=== PATIENT | male | born 1990 | race Caucasian/White ===

== ENCOUNTER → 2017-08-21 | Emergency (ER) | payer MEDICAID | LOC: ER 08:25 | DX: Z02.9 Encounter for administrative examinations, unspecified (principal) ==

== ENCOUNTER 2017-10-13 06:27 | Emergency (ER) | payer MEDICAID ==
[2017-10-13] MEDS ORDERED: ACET-1966 PO (06:40)
[2017-10-13 07:17] LABS: PLATELET COUNT, AUTOMATED 247 K/uL (150-450)
--- NOTE | 2017-10-13 07:22 | RADIOLOGY IMAGING REPORT ---
FACILITY: [facility] PATIENT NAME: Hiro Garcia : 1990 MR: [id number] V: [id number] EXAM DATE: [id number] ORDERING PHYSICIAN: SIGIFREDO MORALES TECHNOLOGIST: Location: [facility] - [place], [place] Patient: Hiro Garcia : 1990 Visit/Account:[id number] Date of Sevice: 10/13/2017 INDICATION: Nausea and vomiting. EXAM DATE: 10/13/2017 6:45 AM COMPARISON: None. FINDINGS: PA view the chest with upright and supine views of the abdomen (3 images). The lungs are well-expanded and clear. No pleural effusion or pneumothorax. Heart size is normal. Bowel gas pattern is nonobstructive. No pneumatosis, pneumoperitoneum or portal venous gas. No eviden ce of large volume ascites or mass. No acute osseous abnormality. IMPRESSION: No acute abnormality. Report Dictated By: Mike Staton MD at 10/13/2017 7:15 AM Report E-Signed By: Mike Staton MD at 10/13/2017 7:17 AM WSN:[id number]
--- NOTE | 2017-10-13 07:36 | ER Report ---
History and Physical Time Seen By MD: 06:54 Hx. of Stated Complaint: PT HAS BEEN VOMITING 3-4X DAY X1 WEEK HPI/ROS CHIEF COMPLAINT: Nausea and vomiting HISTORY OF PRESENT ILLNESS: This is a 26-year-old male. He's been having intermittent nausea and vomiting for the last week. He states he is vomiting about 3 or 4 times a day. Sometimes it is what he eats, sometimes it is just yellow acid or bile. He has no abdominal pain. He has had a little bit of diarrhea. He has normal urination. He says he was diagnosed with ulcers in the past, based on symptoms, no endoscopy, but symptoms went away without treatment. He has no fevers or chills. No hematemesis. No melena or blood in stool. REVIEW OF SYSTEMS: Constitutional: As above. Eyes: No discharge. No vision changes. ENT: No sore throat. No congestion. No hearing changes. Cardiovascular: No chest pain. No palpitations. Respiratory: No cough. No shortness of breath. Gastrointestinal: As above. Genitourinary: No dysuria. No hematuria. No frequency. Musculoskeletal: No back pain. No extremity pain. Skin: No rashes. No bruising. Neurological: No numbness. No weakness. No headache. Allergies: Coded Allergies: No Known Drug Allergies (Unverified , 10/13/17) Home Meds Active Scripts Omeprazole (OMEPRAZOLE) 20 Mg Capsule.dr, 1 CAP PO QDAY, #30 CAP 0 Refills Prov:SIGIFREDO MORALES MD 10/13/17 Ondansetron (ZOFRAN ODT) 4 Mg Tab.rapdis, 4 MG PO Q6H Y for NAUSEA/VOMITING, # 20 TAB.OLIVIA 0 Refills Prov:SIGIFREDO MORALES MD 10/13/17 Promethazine Hcl (PROMETHAZINE HCL) 25 Mg Tablet, 25 MG PO Q8H Y for NAUSEA/ VOMITING, #20 TAB 0 Refills Prov:SIGIFREDO MORALES MD 10/13/17 Reported Medications Acetaminophen (TYLENOL) 325 Mg Tablet, 325 MG PO, TAB 10/13/17 Past Medical/Surgical History ulcer disease Reviewed Nurses Notes: Yes Hx Substance Use Disorder: No Hx Alcohol Use: No Constitutional Vital Sign - Last 24 Hours 10/13/17 10/13/17 10/13/17 10/13/17 06:34 06:34 06:37 06:42 Temp 97.6 Pulse 82 76 67 Resp 16 B/P (MAP) 130/80 130/80 (97) Pulse Ox 95 96 96 O2 Delivery Room Air 10/13/17 10/13/17 10/13/17 10/13/17 06:47 06:52 06:53 07:00 Pulse 77 72 B/P (MAP) 114/85 (95) ???/??? (1665) Pulse Ox 95 97 10/13/17 10/13/17 10/13/17 10/13/17 07:02 07:04 07:12 07:17 Pulse ??? 71 74 B/P (MAP) 123/80 (94) Pulse Ox 93 93 10/13/17 10/13/17 10/13/17 10/13/17 07:22 07:27 07:30 07:32 Pulse 75 80 84 B/P (MAP) 114/74 (87) Pulse Ox 93 92 10/13/17 10/13/17 10/13/17 10/13/17 07:37 07:42 07:47 07:52 Pulse 86 76 78 75 Pulse Ox 93 93 94 94 10/13/17 10/13/17 10/13/17 10/13/17 07:57 08:00 08:02 08:07 Pulse 99 79 82 B/P (MAP) 107/76 (86) Pulse Ox 93 95 92 10/13/17 10/13/17 08:12 08:17 Pulse 81 74 Pulse Ox 90 92 Intake and Output 10/13/17 10/13/17 10/14/17 15:00 23:00 07:00 Intake Total 1000 ml Balance 1000 ml Physical Exam General Appearance: The patient is alert. No acute distress. Eyes: Pupils are equal, round. No pallor, injection or icterus. ENT: Mucous membranes are moist. Normal oral mucosa. Posterior oropharynx is normal. Neck: Supple and non tender. Respiratory: Breathing easily and unlabored. Lungs are clear to auscultation. Cardiovascular: Regular rate and rhythm. No murmurs, gallops or rubs. Normal capillary refill. Gastrointestinal: Abdomen is soft and non tender. Nondistended. Normal active bowel sounds. No costovertebral angle tenderness with percussion. Neurological: Alert and oriented x3. No focal neurologic deficits Skin: Warm and dry. Musculoskeletal: Extremities are nontender. No tenderness in palpation of the cervical, thoracic and lumbar spine. DIFFERENTIAL DIAGNOSIS: After history and physical exam, differential diagnosis was considered for nausea and vomiting without abdominal pain including but not limited to pancreatitis, ulcer disease or gastritis and other infectious processes. Medical Decision Making Data Points Result Diagram: 10/13/17 0653 10/13/17 0653 Laboratory Hematology Test 10/13/17 06:30 10/13/17 06:53 Urine Color Yellow Urine Clarity Clear Urine pH 5.0 pH (4.8-9.5) Urine Specific [place] 1.016 Urine Protein Negative mg/dL (NEGATIVE) Urine Glucose (UA) Negative mg/dL (NEGATIVE) Urine Ketones Negative mg/dL (NEGATIVE) Urine Blood Negative (NEGATIVE) Urine Nitrite Negative (NEGATIVE) Urine Bilirubin Negative (NEGATIVE) Urine Urobilinogen Negative mg/dL (0.2-1.9) Urine Leukocyte Esterase Negative (NEGATIVE) Urine RBC <1 /HPF (0-2/HPF) Urine WBC 1 /HPF (0-5/HPF) Urine Squamous Epithelial Cells None /LPF (</=FEW) Urine Bacteria Few /HPF (NONE-FEW) Urine Mucus None /HPF (NONE-FEW) Red Blood Count 5.68 M/uL (4.00-5.60) Mean Corpuscular Volume 86.8 fL (80.0-96.0) Mean Corpuscular Hemoglobin 30.4 pg (26.0-33.0) Mean Corpuscular Hemoglobin Concent 35.0 g/dL (32.0-36.0) Red Cell Distribution Width 13.0 % (11.5-14.5) Mean Platelet Volume 7.5 fL (7.2-11.1) Neutrophils (%) (Auto) 45.0 % (39.4-72.5) Lymphocytes (%) (Auto) 40.8 % (17.6-49.6) Monocytes (%) (Auto) 11.1 % (4.1-12.4) Eosinophils (%) (Auto) 2.4 % (0.4-6.7) Basophils (%) (Auto) 0.7 % (0.3-1.4) Nucleated RBC Relative Count (auto) 0.2 /100WBC Neutrophils # (Auto) 2.7 K/uL (2.0-7.4) Lymphocytes # (Auto) 2.5 K/uL (1.3-3.6) Monocytes # (Auto) 0.7 K/uL (0.3-1.0) Eosinophils # (Auto) 0.1 K/uL (0.0-0.5) Basophils # (Auto) 0.0 K/uL (0.0-0.1) Nucleated RBC Absolute Count (auto) 0.01 K/uL Sodium Level 143 mmol/L (137-145) Potassium Level 4.5 mmol/L (3.5-5.0) Chloride Level 103 mmol/L (98-107) Carbon Dioxide Level 28 mmol/L (22-30) Blood Urea Nitrogen 15 mg/dl (9-21) Creatinine 1.10 mg/dl (0.66-1.25) Glomerular Filtration Rate Calc > 60.0 Random Glucose 95 mg/dl (75-110) Calcium Level 9.5 mg/dl (8.4-10.2) Total Bilirubin 0.4 mg/dl (0.2-1.3) Aspartate Amino Transf (AST/SGOT) 63 U/L (0-35) Alanine Aminotransferase (ALT/SGPT) 111 U/L (0-56) Alkaline Phosphatase 107 U/L (0-126) Total Protein 7.6 gm/dl (6.3-8.2) Albumin 3.9 g/dl (3.5-5.0) Amylase Level 99 U/L (0-110) Lipase 103 U/L (23-300) Helicobacter pylori IgG Antibody Negative (NEGATIVE) Chemistry Test 10/13/17 06:30 10/13/17 06:53 Urine Color Yellow Urine Clarity Clear Urine pH 5.0 pH (4.8-9.5) Urine Specific [place] 1.016 Urine Protein Negative mg/dL (NEGATIVE) Urine Glucose (UA) Negative mg/dL (NEGATIVE) Urine Ketones Negative mg/dL (NEGATIVE) Urine Blood Negative (NEGATIVE) Urine Nitrite Negative (NEGATIVE) Urine Bilirubin Negative (NEGATIVE) Urine Urobilinogen Negative mg/dL (0.2-1.9) Urine Leukocyte Esterase Negative (NEGATIVE) Urine RBC <1 /HPF (0-2/HPF) Urine WBC 1 /HPF (0-5/HPF) Urine Squamous Epithelial Cells None /LPF (</=FEW) Urine Bacteria Few /HPF (NONE-FEW) Urine Mucus None /HPF (NONE-FEW) White Blood Count 6.0 k/uL (4.5-11.0) Red Blood Count 5.68 M/uL (4.00-5.60) Hemoglobin 17.3 g/dL (14.0-18.0) Hematocrit 49.3 % (42.0-52.0) Mean Corpuscular Volume 86.8 fL (80.0-96.0) Mean Corpuscular Hemoglobin 30.4 pg (26.0-33.0) Mean Corpuscular Hemoglobin Concent 35.0 g/dL (32.0-36.0) Red Cell Distribution Width 13.0 % (11.5-14.5) Platelet Count 247 K/uL (150-450) Mean Platelet Volume 7.5 fL (7.2-11.1) Neutrophils (%) (Auto) 45.0 % (39.4-72.5) Lymphocytes (%) (Auto) 40.8 % (17.6-49.6) Monocytes (%) (Auto) 11.1 % (4.1-12.4) Eosinophils (%) (Auto) 2.4 % (0.4-6.7) Basophils (%) (Auto) 0.7 % (0.3-1.4) Nucleated RBC Relative Count (auto) 0.2 /100WBC Neutrophils # (Auto) 2.7 K/uL (2.0-7.4) Lymphocytes # (Auto) 2.5 K/uL (1.3-3.6) Monocytes # (Auto) 0.7 K/uL (0.3-1.0) Eosinophils # (Auto) 0.1 K/uL (0.0-0.5) Basophils # (Auto) 0.0 K/uL (0.0-0.1) Nucleated RBC Absolute Count (auto) 0.01 K/uL Glomerular Filtration Rate Calc > 60.0 Calcium Level 9.5 mg/dl (8.4-10.2) Total Bilirubin 0.4 mg/dl (0.2-1.3) Aspartate Amino Transf (AST/SGOT) 63 U/L (0-35) Alanine Aminotransferase (ALT/SGPT) 111 U/L (0-56) Alkaline Phosphatase 107 U/L (0-126) Total Protein 7.6 gm/dl (6.3-8.2) Albumin 3.9 g/dl (3.5-5.0) Amylase Level 99 U/L (0-110) Lipase 103 U/L (23-300) Helicobacter pylori IgG Antibody Negative (NEGATIVE) Urinalysis Test 10/13/17 06:30 Urine Color Yellow Urine Clarity Clear Urine pH 5.0 pH (4.8-9.5) Urine Specific [place] 1.016 Urine Protein Negative mg/dL (NEGATIVE) Urine Glucose (UA) Negative mg/dL (NEGATIVE) Urine Ketones Negative mg/dL (NEGATIVE) Urine Blood Negative (NEGATIVE) Urine Nitrite Negative (NEGATIVE) Urine Bilirubin Negative (NEGATIVE) Urine Urobilinogen Negative mg/dL (0.2-1.9) Urine Leukocyte Esterase Negative (NEGATIVE) Urine RBC <1 /HPF (0-2/HPF) Urine WBC 1 /HPF (0-5/HPF) Urine Squamous Epithelial Cells None /LPF (</=FEW) Urine Bacteria Few /HPF (NONE-FEW) Urine Mucus None /HPF (NONE-FEW) EKG/Imaging Imaging INDICATION: Nausea and vomiting. EXAM DATE: 10/13/2017 6:45 AM COMPARISON: None. FINDINGS: PA view the chest with upright and supine views of the abdomen (3 images). The lungs are well-expanded and clear. No pleural effusion or pneumothorax. Heart size is normal. Bowel gas pattern is nonobstructive. No pneumatosis, pneumoperitoneum or portal venous gas. No evidence of large volume ascites or mass. No acute osseous abnormality. IMPRESSION: No acute abnormality. Report Dictated By: Mike Staton MD at 10/13/2017 7:15 AM ED Course/Re-evaluation Clinical Indication for ER IV: IV Access ED Course IV started and labs obtained. Given NS 1000cc IV and Zofran 4mg IV. Protonix 40mg IV. Minimal improvement after these medications. Labs and imaging unremarkable. Recommended follow-up with GI or with general surgery for further evaluation. Decision to Disposition Date: Oct 13, 2017 Decision to Disposition Time: 08:40 Depart Departure Latest Vital Signs Vital Signs Date Time Temp Pulse Resp B/P (MAP) Pulse Ox O2 Delivery O2 Flow Rate FiO2 10/13/17 08:17 74 92 10/13/17 08:00 107/76 (86) 4/19/18 06:34 97.6 16 Room Air Impression: Primary Impression: Nausea & vomiting Condition: Improved Disposition: HOME OR SELF-CARE Referrals: LENORE WILLS MD New Scripts Omeprazole (OMEPRAZOLE) 20 Mg Capsule.dr 1 CAP PO QDAY, #30 CAP 0 Refills Prov: SIGIFREDO MORALES MD 10/13/17 Ondansetron (ZOFRAN ODT) 4 Mg Tab.rapdis 4 MG PO Q6H Y for NAUSEA/VOMITING, #20 TAB.OLIVIA 0 Refills Prov: SIGIFREDO MORALES MD 10/13/17 Promethazine Hcl (PROMETHAZINE HCL) 25 Mg Tablet 25 MG PO Q8H Y for NAUSEA/VOMITING, #20 TAB 0 Refills Prov: SIGIFREDO MORALES MD 10/13/17 Patient Instructions: Acute Nausea and Vomiting (ED) Additional Instructions: Phenergan 25 mg, one every 8 hours as needed for nausea or vomiting. Zofran 4 mg oral dissolving tablet, one every 6 hours as needed for nausea and vomiting. Omeprazole 20 mg, one daily Call and make an appointment with Dr. Wills for further evaluation. Problem Qualifiers Primary Impression: Nausea & vomiting Vomiting type: unspecified Vomiting Intractability: non-intractable Qualified Codes: R11.2 - Nausea with vomiting, unspecified SIGIFREDO MORALES MD Oct 13, 2017 07:35
[2017-10-13] MEDS ORDERED: NS(*) 0.9% 1000 ML BAG 1,000 ML IV ONE (07:45)
[2017-10-13] MEDS ORDERED: PANTOPRAZOLE SOD 40 MG IV VIAL IVP ONE (07:45)
[2017-10-13] MEDS ORDERED: ONDANSETRON 4 MG/2 ML VIAL IVP ONE (07:45)
[2017-10-13 08:00] VITALS: BP 107/76
[2017-10-13] MEDS ORDERED: OMEP-125 PO (08:40)
[2017-10-13] MEDS ORDERED: ONDA4TAB PO (08:40)
[2017-10-13] MEDS ORDERED: PROM-110 PO (08:40)
== END 2017-10-13 08:46 | disposition home or self-care (01) ==
LOC: ER 06:36
DX: R11.2 Nausea with vomiting, unspecified (principal)
CPT/HCPCS: 74022; 81001; 82150; 83690; 85025; 86677; 96361; 96374; 96375; 99284; C9113; J2405; J7030; 82040; 82247; 82310; 82374; 82435; 82565; 82947; 84075; 84132; 84155; 84295; 84450; 84460; 84520